=== PATIENT | male | born 1960 | race Caucasian/White ===

== ENCOUNTER → 2024-01-22 07:45 | Outpatient (REF) | payer BC, SELFPAY | LOC: HWRAD 07:45 | PROVIDERS: ATTENDING PHYSICIAN Internal Medicine Hematology & Oncology; FAMILY PHYSICIAN Family Medicine | DX: D56.3 Thalassemia minor (principal) | CPT/HCPCS: 71260; 74177; Q9967 ==

== ENCOUNTER → 2025-02-06 06:49 | Outpatient (REF) | payer BC, SELFPAY | LOC: RAD 06:49 | PROVIDERS: ATTENDING PHYSICIAN Internal Medicine Hematology & Oncology; FAMILY PHYSICIAN Family Medicine | DX: D56.3 Thalassemia minor (principal); C20 Malignant neoplasm of rectum | CPT/HCPCS: 71260; 74177; Q9967 ==

== ENCOUNTER 2025-05-12 06:16 | Day surgery (SDC) | payer BC, SELFPAY | END 2025-05-12 10:43 | disposition home or self-care (01) | LOC: GI 06:16 | PROVIDERS: ATTENDING PHYSICIAN Internal Medicine Gastroenterology | DX: Z12.11 Encounter for screening for malignant neoplasm of colon (principal); K57.30 Diverticulosis of large intestine without perforation or abscess without bleeding; K22.89 Other specified disease of esophagus; K44.9 Diaphragmatic hernia without obstruction or gangrene; K31.89 Other diseases of stomach and duodenum; K22.70 Barrett's esophagus without dysplasia; K63.5 Polyp of colon; Z86.0101 Personal history of adenomatous and serrated colon polyps; Z85.048 Personal history of other malignant neoplasm of rectum, rectosigmoid junction, and anus | CPT/HCPCS: 45380; 43239; 88305; 88342 ==